=== PATIENT | male | born 2000 | race Caucasian/White ===

== ENCOUNTER 2022-12-10 15:01 | Emergency (ER) | payer OTHER, SELFPAY ==
[2022-12-10 15:18] VITALS: BP 121/83; PULSE 71; RESP 18; TEMP 36.6; O2SAT 100
--- NOTE | 2022-12-10 15:22 | ED.EXTPRO ---
HPI - Extremity Problem General Chief complaint: Extremity Problem,Nontraumatic Stated complaint: toe pain and swelling Time Seen by Provider: 12/10/22 15:22 Source: patient Mode of arrival: ambulatory Limitations: no limitations History of Present Illness HPI Narrative: 22-year-old male presents with concern for infection to right great toe. Patient reports that he clipped his toenails approximately 1 week ago. Reports that he pulled a hangnail from medial aspect of toe that he clipped out. States he noticed redness, pain 2 days later. Now has a cloudy drainage. All systems reviewed and negative except as noted above. Related Data Allergies Allergy/AdvReac Type Severity Reaction Status Date / Time No Known Allergies Allergy Verified 12/10/22 15:30 Review of Systems Review of Systems: CONSTITUTIONAL: Denies fever, chills, or sweats. EYES: Denies visual changes, redness, or discharge. ENT: Denies rhinorrhea, congestion, sore throat, or otalgia. CARDIOVASCULAR: Denies chest pain, palpitations, or edema. RESPIRATORY: Denies cough or dyspnea. GASTROINTESTINAL: Denies abdominal pain, nausea, vomiting, or diarrhea. GENITOURINARY: Denies dysuria or hematuria. SKIN: Denies rash or itching. Reports redness, discharge swelling to right great toe. MUSCULOSKELETAL: Denies back pain, joint pain, or myalgia. NEUROLOGIC: Denies headache, numbness, or weakness. PSYCHIATRIC: Denies anxiety or depression. All other systems reviewed are negative, except as documented in HPI. PMFSH Comments At time of signature, agree with nursing past medical, surgical, social and family history. There is no relevant family history pertinent to the presenting complaint. Exam Narrative: GENERAL: This is a well-nourished, well-developed patient, in no apparent distress. HEAD: normocephalic, atraumatic. EYES: PERRL. Sclera clear/white. Vision is grossly intact. EARS: External ears normal NOSE: External nose normal NECK: Neck supple, non-tender without lymphadenopathy, masses or thyromegaly. CARDIOVASCULAR: Regular rate and rhythm without murmurs, gallops, or rubs. RESPIRATORY: Clear to auscultation. Breath sounds equal bilaterally. No wheezes, rales, or rhonchi. SKIN: warm, Dry, intact with no suspicious lesions or rash, good texture and turgor. redness, swelling and yellow drainage to medial aspect of R great toe, possible ingrown toenail NEURO: awake, alert, and oriented to person, place and time. There were no obvious focal neurologic abnormalities. EXTREMITIES: No joint tenderness, effusion, or edema noted. Course Course Level of Care: Express Care Visit Vital Signs Vital signs: Vital Signs Temperature 36.6 C 12/10/22 15:18 Pulse Rate 71 12/10/22 15:18 Respiratory Rate 18 12/10/22 15:18 Blood Pressure 121/83 12/10/22 15:18 Pulse Oximetry 100 12/10/22 15:18 Oxygen Delivery Room Air 12/10/22 15:18 Temperature 36.6 C 12/10/22 15:18 Pulse Rate 71 12/10/22 15:18 Respiratory Rate 18 12/10/22 15:18 Blood Pressure 121/83 12/10/22 15:18 Pulse Oximetry 100 12/10/22 15:18 Oxygen Delivery Room Air 12/10/22 15:18 Reviewed MDM - Extremity (Nontraumatic) MDM Narrative Medical decision making narrative: Patient is aware of diagnosis, understands and agrees to treatment plan. Anticipatory guidance given. Patient agrees to follow-up as directed and is aware of reasons to seek care at the emergency department. Portions of this record may have been created with voice recognition software Discharge Plan Discharge Clinical Impression: Ingrown toenail of right foot with infection Patient Disposition: Home, Self-Care Condition: Stable Instructions: Antibiotic Form, Ingrown Nail (ED) Additional Instructions: Take antibiotic as prescribed. Take Tylenol or Motrin as needed for pain. Keep toe clean and dry. Wash with mild soap and water. Follow-up with jig builder
== END 2022-12-10 15:33 | disposition home or self-care (01) ==
PROVIDERS: Emergency Provider Nurse Practitioner Family
DX: L60.0 Ingrowing nail (principal); Q61.3 Polycystic kidney, unspecified
CPT/HCPCS: 99213; G0463

== ENCOUNTER 2024-03-04 12:58 | Observation (INO) | payer OTHER, SELFPAY ==
--- NOTE | ~2024-03-04 | XR_ITS ---
EXAMINATION: CT abdomen pelvis w con, XR abdomen/kub 1V DATE: 03/04/2024 15:25 (accession [id number]), 03/04/2024 15:20 (accession [id number]) INDICATION: Lower abdominal pain TECHNIQUE: Computed tomography (CT) of the abdomen and pelvis was performed without intravenous contr ast. Automated exposure control and iterative reconstruction technique were employed. Exam dose: 198 .10 mGy-cm total exam DLP. AP plain radiographic views of the abdomen and pelvis COMPARISON: None. FINDINGS: The lung bases are clear of infiltrate or consolidation. Normal heart size. No pericardial or pleural effusion. The liver, gallbladder, bile ducts, spleen, pancreas, pancreatic duct are unremarkable. Numerous bilateral renal cysts, measuring up to approximately 1.8 cm maximal dimension on the left, 1 1 mm on the right. 2.3 mm calcification is noted at the upper pole the right kidney, possibly a renal calculus or calcif ication of the very renal cyst wall. Approximately 2.5 mm subtle calcification along the posterior wall of an upper pole left renal cyst. No left or right ureteral or urinary bladder calculus or hydroureteronephrosis is detected. The urinary bladder is relatively evacuated, essentially unremarkable. Dilated probable appendix in the right lateral pelvic area with enhancement of the wall and up to 11. 3 mm diameter, suggesting acute appendicitis. No bowel obstruction or intraperitoneal free air. Normal caliber of the abdominal aorta. No intraperitoneal or retroperitoneal or pelvic mass lesion or adenopathy or ascites. Included skeletal structures are unremarkable. IMPRESSION: Acute appendicitis Reviewed, dictated and finalized at [facility] Reviewed, dictated and finalized at [facility]. IMPRESSION: Acute appendicitis IMPRESSION: Acute appendicitis
[2024-03-04 13:03] VITALS: BP 140/81; PULSE 62; RESP 16; TEMP 36.7; O2SAT 100
[2024-03-04 13:42] LABS: Basophils Percent Auto 0.1 % (0.2-1.2); Eosinophils Percent Auto 0.4 % (0-4.4); Hematocrit 42.2 % (42.0-52.0); Hemoglobin 14.7 g/dL (14.0-18.0); Immature Granulocyte Absolute 0.04 K/mm3 (0.00-0.031); Immature Granulocyte Percent A 0.4 % (0-0.5); Lymphocytes Percent Auto 16.9 % (18.3-44.2); Mean Corpuscular HGB Conc 34.8 g/dl (32-36); Mean Corpuscular Hemoglobin 29.8 pg (26-34); Mean Corpuscular Volume 85.4 fl (80-100); Mean Platelet Volume 10.6 fl (7.4-10.4); Monocytes Absolute Auto 0.6 K/mm3 (0.1-0.6); Monocytes Percent Auto 5.4 % (2.6-8.5); Neutrophils Absolute Auto 8.2 K/mm3 (1.3-6.7); Neutrophils Percent Auto 76.8 % (45.5-73.1); Platelet Count Result 233 k/mm3 (150-375); Red Blood Count 4.94 M/mm3 (4.6-6.20); White Blood Count 10.6 K/mm3 (4.5-10.0)
--- NOTE | 2024-03-04 13:50 | PC.NURSE ---
pt unable to urinate at this time.
[2024-03-04 13:52] LABS: Alanine Aminotransferase 40 U/L (6-50); Albumin Level 4.3 g/dL (3.5-5.1); Alkaline Phosphatase 66 U/L (38-126); Anion Gap 10 mmol/L (4-12); Aspartate Amino Transferase 28 U/L (17-59); Bilirubin,Total 0.7 mg/dL (0.2-1.3); Blood Urea Nitrogen 9 mg/dL (9-20); Carbon Dioxide 25 mmol/L (22-30); Chloride 102 mmol/L (98-107); Estimated CRCL calculation 111 ml/min; Estimated Glomerular Filt Rate > 60; Glucose 102 mg/dL (65-110); Lipase 71 U/L (23-300); Potassium 3.8 mmol/L (3.4-5.0); Sodium 137 mmol/L (137-145)
[2024-03-04 14:18] LABS: Add Urine Microscopic? YES; Appearance Urine Clear (Clear); Bacteria Urine None Seen /hpf; Bilirubin Urine Negative (Negative); Blood Urine Negative (Negative); Color Urine Dark Yellow (Yellow); Glucose Urine UA Negative (Negative); Ketones Urine 1+ mg/dL (Negative); Leukocyte Esterase Ur Negative LEU/UL (Negative); Nitrate Urine Negative (Negative); Non Pathogenic Casts 0-2; Protein Urine Trace mg/dL (Negative); RBC Urine 0-2 /hpf (0-2); Specific Grav Ur 1.034 (1.001-1.035); Squamous Epithelial Cell Urine None Seen /hpf (Few); WBC Urine 0-5 /hpf (0-3)
--- NOTE | 2024-03-04 14:39 | ECG_ITS ---
Test Date: 2024-03-04 14:59:39 Measurements Intervals [place] Rate: 52 P: 61 IL: 130 QRS: 69 QRSD: 82 T: 70 QT: 389 QTc: 364 Interpretive Statements SINUS BRADYCARDIA ST ELEVATION IN DIFFUSE LEADS- PROBABLY EARLY REPOLARIZATION BASELINE ARTIFACT- I, II, III, AVR, AVL, AVF BORDERLINE ECG No previous ECG available for comparison Electronically Signed On 03-04-2024 20:34:35 CDT by Jake Leary D.O.
[2024-03-04 14:40] VITALS: BP 109/85; PULSE 60; RESP 18; O2SAT 97
--- NOTE | 2024-03-04 14:45 | ED.ABDPAIN ---
HPI - Abdominal Pain General Chief Complaint: Abdominal Pain <Lis Lopez APRN - Last Filed: 03/04/24 17:42> Stated Complaint: abd pain <Lis Lopez APRN - Last Filed: 03/04/24 17:42> Time Seen by Provider: 03/04/24 13:57 <Lis Lopez APRN - Last Filed: 03/04/24 17:42> Source: patient and family <Lis Lopez APRN - Last Filed: 03/04/24 17:42> Mode of arrival: ambulatory <Lis Lopez APRN - Last Filed: 03/04/24 17:42> Limitations: no limitations <Lis Lopez APRN - Last Filed: 03/04/24 17:42> History of Present Illness HPI narrative: Patient is a 23-year-old male presents to the with complaints of left lower quadrant pain for 2 days. He reports he was sick with a fever for 4 days, and developed this abdominal pain. Patient does endorse nausea outside of the hospital but reports that has subsided since coming to the ER. He reports he has taken Tylenol to treat pain. Patient denies alcohol marijuana use. He reports he had his last bowel movement 2 days ago and it was regular. Pt reports he has been bloated, but has been passing gas. He reports the abdominal pain has radiated to the left side of his back but that has also subsided at this time. 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 He has no complaints of shortness of breath, blood in his urine, or chest pain. <Lis Lopez APRN - Last Filed: 03/04/24 17:42> Related Data Home Medications: Home Medications Medication Instructions Recorded Confirmed acetaminophen 500 mg tablet 1,000 mg PO Q6H PRN mild pain or 03/04/24 03/04/24 (Tylenol Extra Strength) fever <Lis Lopez APRN - Last Filed: 03/04/24 17:42> Allergies/Adverse Reactions: Allergies Allergy/AdvReac Type Severity Reaction Status Date / Time No Known Allergies Allergy Verified 03/04/24 13:26 <Lis Lopez, MANAGER OF QUALITY - Last Filed: 03/04/24 17:42> Review of Systems Review of Systems: All systems reviewed & are unremarkable except as noted in HPI and below <Lis Kadie Lopez APRN - Last Filed: 03/04/24 17:42> PMFSH Past Medical History Medical History: Medical History Polycystic kidney disease <Lisaminah Lopez APRN - Last Filed: 03/04/24 17:42> Family History Family History: Family History Father , Onset Age: 58 multiple syndrome atropy (MSA) Sibling Polycystic kidney disease Other No problems noted. Mother Diabetes mellitus <Lisaminah Lopez APRN - Last Filed: 03/04/24 17:42> Social History Social History: Social History Smoking status: Current every day smoker Tobacco type: e-cigarettes/vaping Alcohol intake: never Substance use: never Do You Feel Safe in your Home?: Yes Lack of Transportation: No Lack of Food: Never True Current Housing: I Have Housing Concerned About Future Housing: No Difficulty Paying Gas/Electric Bills: No Difficulty Paying for Meds: No Currently Unemployed: No Education: Associate Degree Difficulty w/ Childcare or Family Care: No Spiritual care concerns: No <Lisaminah Lopez APRN - Last Filed: 03/04/24 17:42> Exam Narrative: GENERAL: Well appearing, well-nourished, non-toxic, in no acute distress. HEAD: Normocephalic, atraumatic. NECK: Supple. No adenopathy, no masses. RESPIRATORY: Airway patent, respirations nonlabored. Clear to auscultation bilaterally, no rales, rhonchi, wheezing. CARDIOVASCULAR: Regular rate and rhythm without murmurs, rubs, or gallops. Peripheral pulses 2+ and equal bilaterally. ABDOMINAL: Soft, mildly tender to LUQ, more tender in LLQ, nondistended, no hepatosplenomegaly. Normoactive BS. Negative McBurney and Psoas signs. MU
[2024-03-04] MEDS: SODIUM CHLORIDE 0.9% IV 1,000 ML 999 ML IV CONT (14:50)
[2024-03-04] MEDS: PANTOPRAZOLE SODIUM IV 40 MG VIAL IV PUSH (14:50)
[2024-03-04] MEDS: FAMOTIDINE 20 MG/2 ML VIAL IV PUSH (14:50)
[2024-03-04 15:11] LABS: Lactic Acid Reflex 0.7 mmol/L (0.7-2.0)
[2024-03-04 15:14] LABS: INR 1.1; Prothrombin Time 14.2 Seconds (11.1-14.7)
[2024-03-04 15:15] LABS: Partial Thromboplastin Time 26.9 Seconds (22.3-36.8)
[2024-03-04 15:24] LABS: Troponin I < 0.012 ng/mL (0.000-0.034)
--- NOTE | 2024-03-04 16:50 | PM.IMHP ---
H&P: HPI History of Present Illness Date/Time: 03/04/24 16:50 Chief Complaint: Abdominal Pain Narrative: 23 y/o M presents here with abdominal pain with PMH of polycystic kidney disease. The patient presents here from home for further evaluation of abdominal pain. The patient initially presented with nausea without vomiting and fever. This is been ongoing since Wednesday, 02/28. Max T at home was 100.8? F. The patient then developed diffuse abdominal pain on since yesterday morning (03/03). He further describes the abdominal pain as achy, nonradiating, constant, no alleviating or aggravating factors. Patient trialed Tylenol at home without much improvement. Endorsing accompanying abdominal bloating. Denies diarrhea, constipation, chills, or body aches. No previous history of surgeries. No recent alcohol or marijuana use. Initial VS at presentation: 98? F, HR 62, RR 16, 140/81, and 100% on RA. ED workup showed: WBC 10.6, no anemia, normal coags, no significant electrolyte derangements and normal renal function, initial troponin negative, lactic 0.7. UA showed 1+ ketones, otherwise unremarkable. CT of the abdomen/pelvis showed acute appendicitis without abscess. Review of Systems Review of Systems: All systems reviewed & are unremarkable except as noted in HPI and below PMFSH Past Medical History Medical History Polycystic kidney disease Family History Family History Father , Onset Age: 58 multiple syndrome atropy (MSA) Sibling Polycystic kidney disease Other No problems noted. Mother Diabetes mellitus Social History Social History Smoking status: Current every day smoker Tobacco type: e-cigarettes/vaping Alcohol intake: never Substance use: never Do You Feel Safe in your Home?: Yes Lack of Transportation: No Lack of Food: Never True Current Housing: I Have Housing Concerned About Future Housing: No Difficulty Paying Gas/Electric Bills: No Difficulty Paying for Meds: No Currently Unemployed: No Education: Associate Degree Difficulty w/ Childcare or Family Care: No Spiritual care concerns: No Meds Home Medications and Allergies Home Medications Medication Instructions Recorded Confirmed Type acetaminophen 500 mg tablet 1,000 mg PO Q6H PRN mild pain or 03/04/24 03/04/24 History (Tylenol Extra Strength) fever Allergies Allergy/AdvReac Type Severity Reaction Status Date / Time No Known Allergies Allergy Verified 03/04/24 13:26 Vital Signs Vital Signs - 24 hr 03/04/24 13:03 03/04/24 14:40 Temperature 98.0 F Pulse Rate 62 60 Respiratory Rate 16 18 Blood Pressure 140/81 109/85 Pulse Oximetry 100 97 Exam Const: General: comfortable and no acute distress Other: , male, nontoxic appearance HENMT: Face/Nose/Sinus: Normal nares present Mouth: Yes moist mucous membranes Eyes: General: appearance normal, both eyes and all related structures Sclera: sclerae normal Pupils: Equal, round and reactive pupils present EOM: EOMs intact bilaterally Resp: Effort & Inspection: normal respiratory effort Auscultation: clear to auscultation bilaterally Cardio: Rate: regular rate Rhythm: regular rhythm GI: Other: mild LLQ tenderness without guarding. Abdomen otherwise soft and nondistended. Normoactive bowel sounds in all quadrants. Skin: General skin exam: normal color and no rashes or lesions noted Wounds: no wounds Neuro: General: gait normal Speech: normal speech Motor exam (neuro): 5/5 motor strength present throughout Sensory Exam: normal sensation Other: A&O x4 Extrem: General: normal to inspection Psych: Mental Status: mental status grossly normal Affect: normal affect Other: Good insight and judgment, pleasant
[2024-03-04] MEDS: PIPERACILLN/TAZ 3.375GM/NS50ML 3.375 GM/50 ML BAG IVPB ×2 (17:05→23:11)
[2024-03-04 17:37] VITALS: BP 120/79; PULSE 55; RESP 18; O2SAT 97
--- NOTE | 2024-03-04 17:46 | ADMGEN ---
This patient, Stanley Pardo, was admitted to Medical Room 342-01. Patient/family oriented to hospital policies and general routines including ID bracelet, bed and alarms, visiting hours, pain management, procedures, bathroom and other care routines, personal items, smoking policy, room service/diet, and visiting hours. Information on how to activate the Rapid Response Team has been discussed. Patient/Family are encouraged to report perceived risks to care and to ask questions if they do not understand what they are told or what they should do.
[2024-03-04] MEDS: SODIUM CHLORIDE 0.9% IV 1,000 ML 150 ML IV CONT (18:40)
[2024-03-04 18:42] VITALS: BMI 18.3
[2024-03-04 19:01] VITALS: BP 132/88; PULSE 55; RESP 20; TEMP 36.6; O2SAT 99
--- NOTE | 2024-03-04 19:43 | WPDANESEPP ---
Anes - Eval Pre Procedure Procedure: laparoscopic appendectomy Date/Time: 03/04/24 19:43 Pre Op Diagnosis: abd pain Patient Data Age: 23 Gender: M Height: 1.75 m Weight: 56.2 kg Last Vital Signs Temp 36.6 C 03/04/24 19:01 Pulse 55 L 03/04/24 19:01 Resp 20 03/04/24 19:01 BP 132/88 03/04/24 19:01 Pulse Ox 99 03/04/24 19:01 Allergies Allergy/AdvReac Type Severity Reaction Status Date / Time No Known Allergies Allergy Verified 03/04/24 13:26 Home Medications Medication Instructions Recorded Confirmed Type acetaminophen 500 mg tablet 1,000 mg PO Q6H PRN mild pain or 03/04/24 03/04/24 History (Tylenol Extra Strength) fever Laboratory Tests 03/04/24 03/04/24 03/04/24 13:36 14:07 14:56 WBC 10.6 H K/mm3 (4.5-10.0) RBC 4.94 M/mm3 (4.6-6.20) Hgb 14.7 g/dL (14.0-18.0) Hct 42.2 % (42.0-52.0) MCV 85.4 fl (80-100) MCH 29.8 pg (26-34) MCHC 34.8 g/dl (32-36) RDW 12.0 % (11.5-14.5) Plt Count 233 k/mm3 (150-375) MPV 10.6 H fl (7.4-10.4) Immature Gran % (Auto) 0.4 % (0-0.5) Neut % (Auto) 76.8 H % (45.5-73.1) Lymph % (Auto) 16.9 L % (18.3-44.2) Daniels % (Auto) 5.4 % (2.6-8.5) Eos % (Auto) 0.4 % (0-4.4) Baso % (Auto) 0.1 L % (0.2-1.2) Lymph # (Auto) 1.80 K/mm3 (0.9-3.2) Daniels # (Auto) 0.6 K/mm3 (0.1-0.6) Eos # (Auto) 0.0 K/mm3 (0-0.3) Baso # (Auto) 0.0 K/mm3 (0.0-0.1) Abs Immat Gran (auto) 0.04 H K/mm3 (0.00-0.031) Absolute Neuts (auto) 8.2 H K/mm3 (1.3-6.7) Absolute Nucleated RBC 0.000 K/mm3 (0.0-0.012) Nucleated RBC % 0.0 % (0.0-0.2) PT 14.2 Seconds (11.1-14.7) INR 1.1 APTT 26.9 Seconds (22.3-36.8) Sodium 137 mmol/L (137-145) Potassium 3.8 mmol/L (3.4-5.0) Chloride 102 mmol/L (98-107) Carbon Dioxide 25 mmol/L (22-30) Anion Gap 10 mmol/L (4-12) BUN 9 mg/dL (9-20) Creatinine 0.70 mg/dL (0.7-1.3) Estim Creat Clear Calc 111 ml/min Estimated GFR > 60 (59 - ) Glucose 102 mg/dL (65-110) Lactic Acid 0.7 mmol/L (0.7-2.0) Calcium 9.0 mg/dL (8.4-10.2) Total Bilirubin 0.7 mg/dL (0.2-1.3) AST 28 U/L (17-59) ALT 40 U/L (6-50) Alkaline Phosphatase 66 U/L (38-126) Troponin I < 0.012 ng/mL (0.000-0.034) Total Protein 8.0 g/dL (6.3-8.2) Albumin 4.3 g/dL (3.5-5.1) Lipase 71 U/L (23-300) Urine Color Dark yellow (Yellow) Urine Appearance Clear (Clear) Urine pH 6.0 (5.0-9.0) Ur Specific [place] 1.034 (1.001-1.035) Urine Protein Trace mg/dL (Negative) Urine Glucose (UA) Negative mg/dL (Negative) Urine Ketones 1+ H mg/dL (Negative) Ur Blood (Man) Negative (Negative) Urine Nitrate Negative (Negative) Urine Bilirubin Negative (Negative) Urine Urobilinogen 1.0 mg/dL (<2.0) Leukocyte Esterase Rfl Negative SIMI/UL (Negative) Urine RBC 0-2 /hpf (0-2) Urine WBC 0-5 /hpf (0-3) Ur Squamous Epith Cells None seen /hpf (Few) Urine Bacteria None seen /hpf Urine Casts 0-2 Patient hx anesthesia problems: none Family hx anesthesia problems: none Results Review: All pre-operative results and documents have been reviewed as part of the pre-operative evaluation. [facility] Past Medical History Medical History (Updated 03/04/24 @ 19:44 by Malinda Bowers CRNA) Polycystic kidney disease Family History Family History (Updated 03/04/24 @ 18:51 by Belkis Martin RN) Fat
[2024-03-04 20:13] VITALS: BP 128/76; PULSE 53; RESP 18; TEMP 36.5; O2SAT 99
[2024-03-05] VITALS (7 sets, daily range): BP systolic 120–157; BP diastolic 65–86; PULSE 60–84; RESP 14–22; TEMP 36.2–36.9; O2SAT 98–100
[2024-03-05] MEDS: PIPERACILLN/TAZ 3.375GM/NS50ML 3.375 GM/50 ML BAG IVPB ×2 (05:03→12:00)
[2024-03-05 05:32] LABS: Basophils Percent Auto 0.3 % (0.2-1.2); Eosinophils Absolute Auto 0.1 K/mm3 (0-0.3); Hemoglobin 13.3 g/dL (14.0-18.0); Immature Granulocyte Absolute 0.01 K/mm3 (0.00-0.031); Immature Granulocyte Percent A 0.1 % (0-0.5); Lymphocytes Absolute Auto 2.78 K/mm3 (0.9-3.2); Lymphocytes Percent Auto 35.1 % (18.3-44.2); Mean Corpuscular HGB Conc 33.3 g/dl (32-36); Mean Corpuscular Hemoglobin 29.6 pg (26-34); Mean Corpuscular Volume 88.9 fl (80-100); Mean Platelet Volume 10.9 fl (7.4-10.4); Monocytes Absolute Auto 0.6 K/mm3 (0.1-0.6); Monocytes Percent Auto 7.1 % (2.6-8.5); Neutrophils Absolute Auto 4.5 K/mm3 (1.3-6.7); Neutrophils Percent Auto 56.4 % (45.5-73.1); Platelet Count Result 217 k/mm3 (150-375); Red Cell Distribution Width 12.1 % (11.5-14.5); White Blood Count 7.9 K/mm3 (4.5-10.0)
[2024-03-05 05:49] LABS: Alanine Aminotransferase 30 U/L (6-50); Albumin Level 3.8 g/dL (3.5-5.1); Alkaline Phosphatase 52 U/L (38-126); Anion Gap 7 mmol/L (4-12); Aspartate Amino Transferase 23 U/L (17-59); Bilirubin,Total 1.2 mg/dL (0.2-1.3); Blood Urea Nitrogen 8 mg/dL (9-20); Calcium 8.4 mg/dL (8.4-10.2); Carbon Dioxide 25 mmol/L (22-30); Chloride 102 mmol/L (98-107); Estimated CRCL calculation 100 ml/min; Estimated Glomerular Filt Rate > 60; Glucose 84 mg/dL (65-110); Potassium 4.1 mmol/L (3.4-5.0); Sodium 134 mmol/L (137-145)
--- NOTE | 2024-03-05 08:15 | PM.IMPN ---
Progress Note: A&P Assessment and Plan (1) Acute appendicitis: Qualifiers: Acute appendicitis type: with generalized peritonitis Appendicitis abscess presence: without abscess Appendicitis gangrene presence: without gangrene Appendicitis perforation presence: without perforation Qualified Code(s): K35.200 - Acute appendicitis with generalized peritonitis, without perforation or abscess Code(s): K35.80 - Unspecified acute appendicitis Status: Acute Assessment and Plan: 03/05/24: Abdomen x-ray showing acute appendicitis CT of abdomen pelvis showed acute appendicitis General surgery consulted and plans for surgical intervention Continue NPO status Continue IV fluids Continue Zosyn Blood cultures were obtained and are pending Continue pain control Continue nausea control Time Spent With Patient Time with patient: 25 - 35 minutes Subjective Date/time seen: 03/05/24 08:15 Interval history: Interval history: This is a 23-year-old male who presented to the hospital on 03/04/2024 with complaints of abdominal pain. Workup in the hospital included an abdomen x-ray which showed acute appendicitis. Abdomen/pelvis CT showed acute appendicitis. Initial labs showed a white blood cell count of 10.6, lipase was normal at 71, troponin was negative, otherwise unremarkable. UA was obtained and showed 1+ ketones otherwise unremarkable. Blood cultures were obtained and are pending. Patient was given Zosyn, Protonix, Pepcid, and 1 L of normal saline while in the ED. general surgery was consulted. Subjective: Patient denies any fever, chills, nausea, vomiting, diarrhea, abdominal pain, chest pain, or shortness of breath. Patient states his pain has subsided overnight. Labs and imaging reviewed. Review of Systems Review of Systems: All systems reviewed & are unremarkable except as noted in HPI and below Constitutional: Constitutional: Reports as per HPI and Reports no additional constitutional complaints Eyes: Eyes: Reports as per HPI and Reports no additional eye complaints ENT: Reports system reviewed and no additional complaints, except as documented and Reports as per HPI Cardiovascular: Cardiovascular: Reports as per HPI and Reports no additional cardiovascular complaints Respiratory: Respiratory: Reports as per HPI and Reports no additional respiratory complaints Gastrointestinal: Gastrointestinal: Reports as per HPI and Reports no additional gastrointestinal complaints Genitourinary: Genitourinary: Reports no additional male genitourinary complaints and Reports as per HPI Musculoskeletal: Musculoskeletal: Reports no additional musculoskeletal complaints and Reports as per HPI Integumentary/Breasts: Skin/Breast: Reports system reviewed and no additional complaints, except as docu and Reports as per HPI Neurologic: Reports system reviewed and no additional complaints, except as documented and Reports as per HPI Psychiatric: Psychiatric: Reports no additional psychiatric complaints and Reports as per HPI Exam Narrative: General: In no acute distress, well nourished Head: atraumatic, no encephalopathy Eyes: EOMI, PERRLA, sclera clear ENT: moist mucous membranes, nasal passages clear Neck: supple, no JVD, no adenopathy, trachea midline Cardiac: Normal S1 and S2. RRR, No murmur, gallops or friction rubs, peripheral pulses intact. Respiratory: Lungs clear to auscultation, no adventitious lung sounds, currently on room air Gastrointestinal: soft, non-distended, non-tender, normoactive bowel sounds. : voiding without difficulty. Extremities: moves all extremities well, no edema, good ROM, strength 5/5 Skin: clean, dry, intact. No wounds or lesions. Neuro: Alert and oriented x4, cranial nerves intact, no neuro deficits. Psych: normal mood, normal affect, interactive Objective Data Vital Signs Vital Signs: Vital Signs - 24 hr 03/04/24 13:03 03/04/24 14:40 03/04/24 17:37 [place]
[2024-03-05] MEDS: LACTATED RINGERS 1,000 ML 500 ML IV CONT (09:06)
[2024-03-05] MEDS: LACTATED RINGERS 1,000 ML 150 ML IV CONT (09:07)
--- NOTE | 2024-03-05 09:07 | WPDCN ---
Assessment and Plan Assessment and plan (1) Polycystic kidney disease: Code(s): Q61.3 - Polycystic kidney, unspecified Status: Acute Assessment and Plan: Patient has normal renal function. Renal cysts are small. Patient stable. Will not impact the need for an emergent laparoscopic appendectomy today. (2) Acute appendicitis: Qualifiers: Acute appendicitis type: with generalized peritonitis Appendicitis abscess presence: without abscess Appendicitis gangrene presence: without gangrene Appendicitis perforation presence: without perforation Qualified Code(s): K35.200 - Acute appendicitis with generalized peritonitis, without perforation or abscess Code(s): K35.80 - Unspecified acute appendicitis Status: Acute Assessment and Plan: Patient appears to have a uncomplicated acute appendicitis. My personal review of the CT scan images and the radiology reading consistent with acute appendicitis. He has been on Zosyn since last evening after he was admitted for IV antibiotics. Has not been on any IV fluids were given IV fluid bolus and then start him on lactated Ringer's [id number] an hour. He will need to go to the operating room this morning for an emergent laparoscopic appendectomy possible conversion open appendectomy. Risks, benefits, indications, and expected outcomes were discussed in detail with the patient and/or family. They understand and I have answered all other questions. They wished to proceed with surgery as outlined above. HPI Data of Consult Date/Time: 03/05/24 09:07 Requesting Physician: Adalid Goldberg MD Primary Care Provider: L[employer] ARMORED VEHICLE OFFICER PHYSICIAN Consult Narrative Reason for consult: Acute appendicitis Narrative: Stanley Pardo is a 23 year old male who presents to the emergency room with a 3 day history of diffuse generalized abdominal pain which eventually localized to the right lower quadrant the abdomen. White blood cell count emergency room was 10,900. No fever it in the ER the patient stated he had a fever to 100.[address] scan abdomen pelvis was performed showing a dilated tubular structure in the right lower quadrant the abdomen with enhancement of the mucosa appendicoliths consistent with acute appendicitis and upper duration abscess seen. He is otherwise healthy and has no other chronic medical conditions other than polycystic kidney disease. His renal function is normal. He does not take any regular scheduled medications. He works as a frame welder cargo utility trailers. He vapes every day and denies any prior surgery. No fever overnight in the hospital. White blood cell count is decreased to 8000 today in the normal range. Review of Systems Review of Systems: The remainder of the review of systems to include constitutional, HEENT, cardiovascular, respiratory, GI, , integumentary, musculoskeletal, endocrine, immunologic, hematologic, psychiatric, and neurologic are all negative except for which is mentioned above in the HPI. [facility] Past Medical History Medical History Polycystic kidney disease Family History Family History Father , Onset Age: 58 multiple syndrome atropy (MSA) Sibling Polycystic kidney disease Other No problems noted. Mother Diabetes mellitus Social History Social History Smoking status: Current every day smoker Tobacco type: e-cigarettes/vaping Alcohol intake: never Substance use: never Do You Feel Safe in your Home?: Yes Lack of Transportation: No Lack of Food: Never True Current Housing: I Have Housing Concerned About Future Housing: No Difficulty Paying Gas/Electric Bills: No Difficulty Paying for Meds: No Currently Unemployed: No Education: Associate Degree Difficulty w/ Childcare or Family Care: No Spiritual care concerns: No
[2024-03-05] MEDS: PANTOPRAZOLE SODIUM IV 40 MG VIAL IV PUSH (09:12)
--- NOTE | 2024-03-05 11:44 | WPDHPUPDATE1 ---
History and Physical Update Update Date/Time: 03/05/24 11:44 History and Physical has been reviewed, including an updated exam of the patient. There are NO changes in the patient's condition. Risks, benefits, and alternatives have been discussed and questions answered. Patient agrees to proceed with procedure.
--- NOTE | 2024-03-05 11:53 | PM.DS ---
DS: Admitting Diagnosis Discharge Date 03/05/24 Admitting Diagnosis Acute appendicitis DS: Discharge Diagnosis Discharge Diagnosis (1) Acute appendicitis: Qualifiers: Acute appendicitis type: with generalized peritonitis Appendicitis abscess presence: without abscess Appendicitis gangrene presence: without gangrene Appendicitis perforation presence: without perforation Qualified Code(s): K35.200 - Acute appendicitis with generalized peritonitis, without perforation or abscess Code(s): K35.80 - Unspecified acute appendicitis Status: Acute DS: Summary Hospital Course Reason for hospitalization: Acute appendicitis Hospital Course: This is a 23-year-old male who presented to the hospital on 03/04/2024 with complaints of abdominal pain. Workup in the hospital included an abdomen x-ray which showed acute appendicitis. Abdomen/pelvis CT showed acute appendicitis. Initial labs showed a white blood cell count of 10.6, lipase was normal at 71, troponin was negative, otherwise unremarkable. UA was obtained and showed 1+ ketones otherwise unremarkable. Blood cultures were obtained and are pending. Patient was given Zosyn, Protonix, Pepcid, and 1 L of normal saline while in the ED. general surgery was consulted and took patient for laparoscopic appendectomy today. Patient feeling better after surgery. His pain is well controlled. He is stable for discharge and will need to follow up with General surgery in 2 weeks. Final diagnosis: Acute appendicitis, laparoscopic appendectomy Status at Discharge Cognitive/behavioral status at discharge: Alert oriented x4 Functional status at discharge: independent ambulation Overall status at discharge: patient is progressing back to baseline Time Spent with Patient Time attestation: Total time spent providing and/or coordinating discharge services: Time spent: Greater than 30 minutes Exam Narrative: General: In no acute distress, well nourished Head: atraumatic, no encephalopathy Eyes: EOMI, PERRLA, sclera clear ENT: moist mucous membranes, nasal passages clear Neck: supple, no JVD, no adenopathy, trachea midline Cardiac: Normal S1 and S2. RRR, No murmur, gallops or friction rubs, peripheral pulses intact. Respiratory: Lungs clear to auscultation, no adventitious lung sounds, currently on room air Gastrointestinal: soft, non-distended, non-tender, normoactive bowel sounds. : voiding without difficulty. Extremities: moves all extremities well, no edema, good ROM, strength 5/5 Skin: clean, dry, intact. No wounds or lesions. Neuro: Alert and oriented x4, cranial nerves intact, no neuro deficits. Psych: normal mood, normal affect, interactive DS: Data Data Completed and Pending Completed studies during hospitalization: Abdomen x-ray Abdomen/pelvis CT Pending studies at discharge: Blood cultures pending Labs on day of discharge: Labs from last 24 hours 03/05/24 03/04/24 03/04/24 05:20 14:56 14:07 WBC 7.9 RBC 4.50 L Hgb 13.3 L Hct 40.0 L MCV 88.9 MCH 29.6 MCHC 33.3 RDW 12.1 Plt Count 217 MPV 10.9 H Immature Gran % (Auto) 0.1 Neut % (Auto) 56.4 Lymph % (Auto) 35.1 [place] % (Auto) 7.1 Eos % (Auto) 1.0 Baso % (Auto) 0.3 Lymph # (Auto) 2.78 [place] # (Auto) 0.6 Eos # (Auto) 0.1 Baso # (Auto) 0.0 Abs Immat Gran (auto) 0.01 Absolute Neuts (auto) 4.5 Absolute Nucleated RBC 0.000 Nucleated RBC % 0.0 PT 14.2 INR 1.1 APTT 26.9 Sodium 134 L Potassium 4.1 Chloride 102 Carbon Dioxide 25 Anion Gap 7 BUN 8 L Creatinine 0.80 Estim Creat Clear Calc 100 Estimated GFR > 60 Glucose 84 Lactic Acid 0.7 Calcium 8.4 Total Bilirubin 1.2 AST 23 ALT 30 Alkaline Phosphatase 52 Troponin I < 0.012 Total Protein 7.0 Albumin 3.8 Lipase Urine Color Dark yellow Urine Appearance Clear Urine pH 6.0 Ur Specific [place]
--- NOTE | 2024-03-05 13:03 | P.PNAN_ITS ---
Anes - Eval Final PreProcedure Day of Procedure 03/05/24 13:03 Patient weight: thin Heart: regular rate and rhythm Lungs: clear to auscultation Airway: Mallampati scale class II Neurological: alert and oriented Last oral intake: >/= 8 hours ASA classification: II Emergent: no Anesthetic plan: proceed Anesthesia type and monitoring: general ETT and standard monitoring Results Review: All pre-operative results and documents have been reviewed as part of the pre- operative evaluation. Informed Consent: The patient's anesthetic plan and its attendant risks and benefits were discussed with the patient/family/POA. Questions were solicited and answers provided to the satisfaction of the patient/family/POA.
[2024-03-05] MEDS: LIDO 1%/EPINEPHRINE 1:100,000 20 ML VIAL 30 ML INFILTRATE (14:47)
[2024-03-05] MEDS: KETOROLAC 30 MG/ML VIAL (*BKC) IV PUSH (14:51)
[2024-03-05] MEDS: LACTATED RINGERS 1,000 ML 30 ML IV CONT (15:07)
--- NOTE | 2024-03-05 15:07 | W.PM.PROC2 ---
Procedure Note - Detailed Date of Procedure 03/05/24 Pre-op Diagnosis Acute appendicitis Post-op Diagnosis Same Procedure Performed Laparoscopic appendectomy Surgeon Lawrence Hui MD Electrical Controls Assembler Elle Arias [facility] Anesthesia General Indications Patient is a 23-year-old white male presented to the emergency room with a 1 day history of worsening abdominal pain which localized the right lower quadrant the abdomen. In the emergency room a mildly elevated white blood count of 12,000. CT scan abdomen pelvis was performed showing a dilated appendix with thickened wall some periappendiceal inflammation consistent with acute appendicitis which was non perforated. He presents now for an urgent laparoscopic appendectomy. Findings Patient had an acutely inflamed appendix. The base appendix was normal. No gangrene or perforation was noted. Description of Procedure After informed consent was obtained patient brought to the operating room was placed supine position and general endotracheal anesthesia was administered. The abdomen was then prepped and draped usual sterile fashion. Time-out was then performed correctly identifying the patient as well as procedure to be performed. He was already on scheduled IV antibiotics. I then entered the abdomen left upper quadrant utilizing a 5mm Optiview port. Once inside the abdomen insufflated to adequate pneumoperitoneum of 15mmHg of CO2. I then placed a 5mm suprapubic trocar port and then a 12mm periumbilical trocar port as well as another 5mm right lower quadrant trocar port all under direct visualization. The appendix was seen in the right lower quadrant. It was held laparoscopic grasper and then the base of the mesoappendix was identified. I then utilized a [place] dissector to make a defect through the mesoappendix just at the base of the appendix. A 45mm Endo-WILD stapler was then used to divide the appendix flush with the cecum. A vascular reload was then used to divide the mesoappendix. The appendix was then placed into an Endo-Catch bag and brought out the periumbilical trocar port site. It was passed off table sent to pathology for examination. Small amount of bleeding was noted in the staple line to the mesoappendix. This was treated electrocautery to achieve hemostasis. I then checked and the staple line on the cecum was intact without any bleeding. I then removed all the trocar ports under visualization all port sites appeared hemostatic. I then allowed the abdomen decompress. I then irrigated the port sites sterile saline solution hemostasis was good. I then closed the 12mm periumbilical trocar port fascial defect utilizing 0 Vicryl suture in a figure-eight fashion. The skin edges in all the port sites were then approximated utilizing a running subcuticular 4-0 Monocryl suture. The incisions were then cleaned and skin glue was applied. The patient tolerated the procedure well no complications. All sponges, needles, and instrument counts were correct at the end procedure. EBL was _15__cc. The patient was awakened and taken to recovery in stable and satisfactory condition. Implants None Estimated Blood Loss 15 Urine Output 400 Drains No Packing No Pathology Yes (Appendix to pathology) Complications No immediate complications Condition Stable Disposition PACU [facility] Billing Surgery - Charge Forward: Surgery Billing
[2024-03-05] MEDS: HYDROcodone/acetaminophen (*CRX) 5-325 MG TABLET 1 TAB PO (16:19)
== END 2024-03-05 18:56 | disposition home or self-care (01) ==
LOC: ANHED 16:24 → ANH3MED 18:05
PROVIDERS: Emergency Medicine; Student in an Organized Health Care Education/Training Program; Surgery; Admitting Provider Internal Medicine; Emergency Provider Registered Nurse; Visit Provider Internal Medicine
PROC: 0DTJ4ZZ Resection of Appendix, Percutaneous Endoscopic Approach (ICD-10-PCS; CPT 44970; principal; 2024-03-05 13:00)
DX: K36 Other appendicitis (principal); Q61.3 Polycystic kidney, unspecified; F17.290 Nicotine dependence, other tobacco product, uncomplicated
CPT/HCPCS: 44970; 36415; 74018; 74177; 80053; 81001; 83605; 83690; 84484; 85025; 85610; 85730; 87040; 88304; 93005; 96361; 96365; 96375; 96376; 99285; A9270; G0378; J1100; J1885; J2250; J2405; J2470; J2543; J2704; J3010; J7030; J7120; Q9967